=== PATIENT | female | born 1950 | race Caucasian/White ===

== ENCOUNTER 2022-03-11 05:53 | Day surgery (SDC) | payer MEDICARE ==
[2022-03-01 16:56] LABS: BASOPHILS # (AUTO) 0.1 X10'3 (0-0.2); BASOPHILS % (AUTO) 0.8 % (0-1); EOSINOPHILS # (AUTO) 0.2 X10'3 (0-0.9); EOSINOPHILS % (AUTO) 2.7 % (0-6); LYMPHOCYTES # (AUTO) 1.7 X10'3 (1.1-4.8); MEAN CORPUSCULAR HEMOGLOBIN 28.5 PG (27.0-31.0); MEAN CORPUSCULAR HGB CONC 32.4 g/dL (33.0-36.5); MEAN PLATELET VOLUME 8.9 FL (7.4-10.4); MONOCYTES # (AUTO) 0.4 X10'3 (0-0.9); MONOCYTES % (AUTO) 6.2 % (2-12); NEUTROPHILS # (AUTO) 4.8 X10'3 (1.8-7.7); NEUTROPHILS % (AUTO) 66.3 % (42-75); PRE OP HEMATOCRIT 39.2 % (35.0-45.0); PRE OP HEMOGLOBIN 12.7 g/dL (12.0-16.0); PRE OP PLATELET COUNT 339 X10'3 (140-440); RED BLOOD COUNT 4.45 X10'6 (4.20-5.60); RED CELL DISTRIBUTION WIDTH 13.9 % (11.5-14.5)
[2022-03-01 17:17] LABS: ALBUMIN 3.7 G/DL (3.4-5.0); ALBUMIN/GLOBULIN RATIO 1.1 (1.1-1.5); ALKALINE PHOSPHATASE 60 IU/L (46-116); BLOOD UREA NITROGEN 23 MG/DL (7-18); BUN/CREATININE RATIO 18.3 (6.6-38.0); CALCIUM 9.1 MG/DL (8.5-10.1); CHLORIDE 104 MMOL/L (99-107); CREATININE 1.26 MG/DL (0.40-0.90); PRE OP ALT 25 U/L (30-65); PRE OP ANION GAP 11 (8-16); PRE OP AST 25 U/L (10-37); PRE OP BILIRUB, TOTAL 0.3 MG/DL (0.0-1.0); PRE OP GLUCOSE 193 MG/DL (70-104); PRE OP POTASSIUM 4.9 MMOL/L (3.4-5.1); PRE OP SODIUM 140 MMOL/L (135-145); TOTAL CARBON DIOXIDE 25.2 MMOL/L (24-32); eGFR 42 ML/MIN
[~2022-03-11] VITALS: Ht 149.9 cm; Wt 59.0 kg
[2022-03-11] VITALS (11 sets, daily range): BP systolic 125–192; BP diastolic 60–84
[~2022-03-11 05:53] MED LIST: ASPI-1475 PO; ATOR40TA72 PO; BENA20TA83 PO; CHOL500050 PO; DULA0.75 SQ; FENO134C21 PO; GENTAMICIN IV ONE; METF-438 PO; NORMAL SALINE IV ONE; clindamycin-Cleocin 900mg/D5W 50 ML IV ONE; famotidine 20mg tablet PO ONE; ringers solution, lacted 1,000 ML IV SCH
[2022-03-11] MEDS ORDERED: BUPIVAcaine 0.25% w/Epi /PF 30ml vial ONE (06:49)
[2022-03-11] MEDS ORDERED: methylene blue (5mg/ml) 50mg/10ml ampul IV ONE (06:49)
[2022-03-11] MEDS ORDERED: labetalol 20mg/4ml (5mg/ml) syringe IV ONE (07:49)
[2022-03-11] MEDS ORDERED: sevoflurane 250ml liquid IH ONE (07:49)
[2022-03-11] MEDS ORDERED: FENTANYL CITRATE/PF 50 MCG/1 ML VIAL ONE (07:50)
[2022-03-11] MEDS ORDERED: midazolam 1 mg/ML 2ml injection ONE (07:50)
[2022-03-11] MEDS ORDERED: ondansetron/PF 4mg/2ml inj ONE (07:51)
[2022-03-11] MEDS ORDERED: dexamethasone sod phosphate 4mg/ml inj. ONE (07:51)
[2022-03-11] MEDS ORDERED: LIDOcaine 2% (20mg/ml) 5ml vial ONE (07:51)
[2022-03-11] MEDS ORDERED: propofol inj 20 ML IV ONE (07:51)
[2022-03-11 07:55] LABS: APTT 22 SECONDS (22-32)
[2022-03-11] MEDS ORDERED: fentaNYL/PF 50MCG/1 ML 2ML syringe IV PRN ×2 (08:25)
[2022-03-11] MEDS ORDERED: morphine 2 MG/ML inj. syringe IV PRN (08:25)
[2022-03-11] MEDS ORDERED: labetalol 20mg/4ml (5mg/ml) syringe IV PRN (08:25)
[2022-03-11] MEDS ORDERED: ondansetron/PF 4mg/2ml inj IV PRN (08:25)
[2022-03-11] MEDS ORDERED: ringers solution, lacted 1,000 ML IV SCH (08:25)
[2022-03-11] MEDS ORDERED: hydrALAZINE 20mg/ml inj. IV PRN (08:25)
[2022-03-11] MEDS ORDERED: morphine 4 MG/ML inj SYRINge IV PRN (08:25)
--- NOTE | 2022-03-11 09:28 | NUR ---
Received from OR via LING, accompanied by Anesthesiologist DR LUNA and report given by Anesthesiolgist. PT PRESENT WITH PIV 20G RIGHT WRIST,LEFT BREAST DRESSING CDI, VSS. Addendum: 03/11/22 at 0935 by Azra Crowe RN, RN Amended: Links added.
--- NOTE | 2022-03-11 10:48 | NUR ---
PATIENT A&OX4, DENIES PAIN, V/S WNL, SCD OFF, 20G TO LUE D/C, RIGHT WRIST DRESSING CDI W/ SLING. ICE AND ELEVATED RUE. I HAVE REVIEWED D/C INSTRUCTIONS WITH PATIENT INSTRUCTIONS WITH PATIENT AND THEY HAVE VERBALIZED UNDERSTANDING. PATIENT D/C HOME WITH ALL BELONGINGS AND FAMILY TRANSPORTED PATIENT HOME. Addendum: 03/11/22 at 1058 by Azra Crowe RN, RN Amended: Links added.
== END 2022-03-11 10:48 | disposition home or self-care (01) ==
LOC: PAS 05:53
PROVIDERS: ATTEND Surgery
DX: C50.612 Malignant neoplasm of axillary tail of left female breast (principal); Z79.899 Other long term (current) drug therapy; Z79.01 Long term (current) use of anticoagulants; Z79.82 Long term (current) use of aspirin; Z98.890 Other specified postprocedural states
CPT/HCPCS: 36415; 38525; 80053; 82948; 85025; 85730; J1100; J1580; J2250; J2405; J2704; J3010; J3490; J7030; J7120; S0020; Z7506; Z7508; Z7512; A4215; A4618; A6258; A6449; A7000; Q9968

== ENCOUNTER 2022-06-03 06:31 | Observation (INO) | payer MEDICARE ==
[2022-05-31 13:06] LABS: BASOPHILS # (AUTO) 0.1 X10'3 (0-0.2); BASOPHILS % (AUTO) 0.9 % (0-1); EOSINOPHILS # (AUTO) 0.1 X10'3 (0-0.9); LYMPHOCYTES # (AUTO) 1.6 X10'3 (1.1-4.8); MEAN CORPUSCULAR HGB CONC 32.4 g/dL (33.0-36.5); MEAN CORPUSCULAR VOLUME 89.5 FL (78-98); MEAN PLATELET VOLUME 8.5 FL (7.4-10.4); MONOCYTES # (AUTO) 0.4 X10'3 (0-0.9); MONOCYTES % (AUTO) 5.9 % (2-12); NEUTROPHILS # (AUTO) 4.8 X10'3 (1.8-7.7); NEUTROPHILS % (AUTO) 68.2 % (42-75); PRE OP HEMATOCRIT 41.4 % (35.0-45.0); PRE OP HEMOGLOBIN 13.4 g/dL (12.0-16.0); PRE OP INR 1.1 INR; PRE OP PLATELET COUNT 332 X10'3 (140-440); PRE OP PROTIME 11.2 SECONDS (9.0-12.0); RED BLOOD COUNT 4.63 X10'6 (4.20-5.60); RED CELL DISTRIBUTION WIDTH 14.5 % (11.5-14.5)
[2022-05-31 13:08] LABS: ALBUMIN 3.9 G/DL (3.4-5.0); ALBUMIN/GLOBULIN RATIO 1.2 (1.1-1.5); ALKALINE PHOSPHATASE 54 IU/L (46-116); BLOOD UREA NITROGEN 22 MG/DL (7-18); BUN/CREATININE RATIO 16.8 (10.0-20.0); CALCIUM 9.6 MG/DL (8.5-10.1); CHLORIDE 105 MMOL/L (99-107); CREATININE 1.31 MG/DL (0.40-0.90); PRE OP ALT 22 U/L (30-65); PRE OP ANION GAP 12 (8-16); PRE OP AST 21 U/L (10-37); PRE OP BILIRUB, TOTAL 0.5 MG/DL (0.0-1.0); PRE OP POTASSIUM 4.2 MMOL/L (3.4-5.1); PRE OP SODIUM 139 MMOL/L (135-145); TOTAL CARBON DIOXIDE 22.3 MMOL/L (24-32); TOTAL PROTEIN 7.1 G/DL (6.4-8.2); eGFR 40 ML/MIN
[2022-05-31 13:21] LABS: PRE OP GLUCOSE 280 MG/DL (70-104)
[~2022-06-03] VITALS: Ht 149.9 cm; Wt 62.5 kg
[2022-06-03] VITALS (23 sets, daily range): BP systolic 102–201; BP diastolic 50–109
[2022-06-03] MEDS ORDERED: methylene blue (5mg/ml) 50mg/10ml ampul IV ONE (06:48)
[2022-06-03] MEDS ORDERED: BUPIVAcaine 0.25% w/Epi /PF 30ml vial ONE (06:48)
[2022-06-03] MEDS ORDERED: BUPIVACAINE liposomal/PF 13.3 MG/ML vial IM ONE ×2 (06:49→09:15)
[2022-06-03] MEDS ORDERED: fentaNYL/PF 50MCG/1 ML 2ML syringe ONE ×2 (08:36→09:28)
[2022-06-03] MEDS ORDERED: midazolam 1 mg/ML 2ml injection ONE (08:37)
[2022-06-03] MEDS ORDERED: propofol inj 20 ML IV ONE (08:38)
[2022-06-03] MEDS ORDERED: LIDOcaine 1%/PF 5ML 10 MG/ML VIAL ONE (08:38)
[2022-06-03] MEDS ORDERED: BUPIVAcaine 0.5% W/EPI /PF 10ml vial IJ ONE (09:17)
[2022-06-03] MEDS ORDERED: morphine 4 MG/ML inj SYRINge IV PRN (10:05)
[2022-06-03] MEDS ORDERED: proCHLORperazine 10 MG/2 ml inj IV PRN (10:05)
[2022-06-03] MEDS ORDERED: meperidine/PF 25mg/ml syringe IV PRN ×3 (10:05)
[2022-06-03] MEDS ORDERED: morphine 2 MG/ML inj. syringe IV PRN (10:05)
[2022-06-03] MEDS ORDERED: ondansetron/PF 4mg/2ml inj IV PRN ×2 (10:05→11:00)
[2022-06-03] MEDS ORDERED: ringers solution, lacted 1,000 ML IV SCH (10:05)
[2022-06-03] MEDS ORDERED: acetaminophen 1,000mg/100ml IV 100 ML IV ONE (10:34)
[2022-06-03] MEDS ORDERED: labetalol 20mg/4ml (5mg/ml) syringe IV ONE (10:53)
[2022-06-03] MEDS ORDERED: ondansetron/PF 4mg/2ml inj ONE (10:53)
[2022-06-03] MEDS ORDERED: acetaminophen w/codeine (30MG) #3 tablet PO PRN (11:00)
[2022-06-03] MEDS ORDERED: diphenhydrAMINE 50 mg/ml inj IV PRN (11:00)
[2022-06-03] MEDS ORDERED: normal saline 500ml IV soln 500 ML IV PRN (11:00)
--- NOTE | 2022-06-03 11:01 | NUR ---
Received from OR via bed, accompanied by Anesthesiologist Dr. Hunt and report given by Anesthesiolgist. BP elevated, Dr. Hunt aweare and stated that he just medicated her before leaving the OR so to hold off treating for 15 minutes. Oral airway in place, chin lift performed for 15 minutes due to obstruction. Opens eyes to commands. Skin warm, iv patent. dressing amber wrap to chest cdi. bridget x2, each with a small amount of bloody drainage. labeled #1 and 2.
[2022-06-03] MEDS ORDERED: enalaprilat dihydrate 2.5mg/2ml vial IV PRN (11:10)
--- NOTE | 2022-06-03 11:28 | NUR ---
Oral airway out. hob elevated slightly. bp now in 140's with no treatment. saturating at 96%
[2022-06-03] MEDS: labetalol 20mg/4ml (5mg/ml) syringe IV PRN ×3 (11:47→12:43)
--- NOTE | 2022-06-03 11:50 | NUR ---
med with trandate for bp 131/109. wokup, emotional. reoriented. no pain.
--- NOTE | 2022-06-03 13:01 | NUR ---
Report called to receiving nurse ROSALIE SEAMAN. Transferred via HOSPITAL BED TO ROOM 357A. BED IN OW LOCKED POSITION WITH VALL LIGHT IN REACH, PT HOOKES UP TO VIATALS MACHINE. CHART TAKEN TO NURSES STATION. BREAST JAYCEE, BATSHEVA OUTPUT PAPER GIVEN TO CHARGE NURSE ORI SEAMAN AND WAS TOLD THAT DRAIN NEEDED TO BE MNONITORED.ONE PT Belongings BAG TAKE TO ROOM 357A WITH PT. Special Issues communicated to receiving nurse. Addendum: 06/03/22 at 1313 by Azra Crowe RN, RN Amended: Links added.
[2022-06-03] MEDS: fenofibrate 145mg tablet PO SCH (13:30)
--- NOTE | 2022-06-03 13:36 | NUR ---
Received report from Azra SEAMAN, Patient arrived on floor at 1300, orientated to room, call light given and educated on how to use, post-op vital signs started.
[2022-06-03] MEDS: ringers solution, lacted 1,000 ML IV SCH ×2 (15:13→17:02)
--- NOTE | 2022-06-03 18:21 | NUR ---
Problems reprioritized. Patient report given, questions answered & plan of care reviewed with Tena SEAMAN.
[2022-06-03] MEDS: metFORMIN 500mg tablet PO SCH (19:56)
[2022-06-03] MEDS: HYDROcodone/acetaminophen 5mg/325mg tablet PO PRN (19:57)
[2022-06-03] MEDS ORDERED: lisinopril 20mg tablet PO SCH (20:00)
[2022-06-04] MEDS: HYDROcodone/acetaminophen 5mg/325mg tablet PO PRN ×2 (02:30→10:01)
[2022-06-04] MEDS: ringers solution, lacted 1,000 ML IV SCH ×2 (02:32→11:00)
--- NOTE | 2022-06-04 06:39 | NUR ---
Problems reprioritized. Patient report given, questions answered & plan of care reviewed with ANNA SEAMAN. Addendum: 06/04/22 at 0641 by Tena Altamirano RN Amended: Links added.
[2022-06-04 07:00] VITALS: BP 117/63
--- NOTE | 2022-06-04 07:00 | NUR ---
Patient in room [facility] 357. I have received report from keny gold and had the opportunity to ask questions and assume patient care.
[2022-06-04] MEDS ORDERED: aspirin 81mg, enteric-coated 1 TAB TABLET.DR PO SCH (08:00)
[2022-06-04] MEDS: cholecalciferol (vitamin D3) 1,000 unit (25mcg) tablet PO SCH ×2 (08:00→08:46)
[2022-06-04] MEDS ORDERED: atorvastatin 20mg tablet PO SCH (08:00)
[2022-06-04] MEDS ORDERED: lisinopril 20mg tablet PO SCH (08:00)
[2022-06-04] MEDS: fenofibrate 145mg tablet PO SCH (08:46)
[2022-06-04] MEDS: metFORMIN 500mg tablet PO SCH (08:46)
[2022-06-04 10:00] VITALS: BP 100/58
--- NOTE | 2022-06-04 13:43 | NUR ---
PT DISCHARGED IN STABLE CONDITION. LEFT FACILITY IN PRIVATE VEHICLE WITH AND DAUGHTER. IV DC [facility] INTACT. FOLLOW UP INSTRUCTIONS GIVEN, PER PT SHE HAS FU APPT ALREADY SCHEDULED WITH DR FARAH. ALL BELONGINGS IN HAND. ALL QUESTIONS ANSWERED. Addendum: 06/04/22 at 1345 by Darline Ji RN Amended: Links added.
[2022-06-09] MEDS ORDERED: Dulaglutide (Trulicity) 0.5 ML SQ SCH (08:00)
== END 2022-06-04 13:05 | disposition home or self-care (01) ==
LOC: PAS 06:31 → PAS IN 11:18 → SUR 3N 13:07
PROVIDERS: ADMIT Surgery; ATTEND Surgery
DX: C50.912 Malignant neoplasm of unspecified site of left female breast (principal); I12.9 Hypertensive chronic kidney disease with stage 1 through stage 4 chronic kidney disease, or unspecified chronic kidney disease; E11.22 Type 2 diabetes mellitus with diabetic chronic kidney disease; N18.30 Chronic kidney disease, stage 3 unspecified; Z88.0 Allergy status to penicillin; Z79.899 Other long term (current) drug therapy; Z86.73 Personal history of transient ischemic attack (TIA), and cerebral infarction without residual deficits; Z90.12 Acquired absence of left breast and nipple
CPT/HCPCS: 19307; 36415; 80053; 82948; 85025; 85610; 85730; 86885; 86900; 86901; 93005; 96365; 96375; A6258; C9290; G0378; J0131; J1580; J2175; J2250; J2270; J2405; J2704; J3010; J3490; J7120; J7121; S0020; 88307; A4215; A4615; A4618; A6213; A6253; A6449; A7000; Q9968